=== PATIENT | male | born 1960 | race Caucasian/White ===

== ENCOUNTER 2020-12-31 17:52 | Emergency (ER) | payer OTHER ==
[~2020-12-31] VITALS: Ht 182.9 cm; Wt 99.8 kg
[2020-12-31 18:21] LABS: BASOPHILS 0.8 % (0.0-2.0); EOSINOPHILS 1.7 % (0.0-3.0); HEMATOCRIT 43.5 % (42.0-52.0); HEMOGLOBIN 14.6 gm/dL (14.0-18.0); LYMPHOCYTES 30.2 % (24.0-44.0); MCH 32.3 pg (26.0-34.0); MCHC 33.7 g/dL (28.0-37.0); MCV 95.8 fL (80.0-100.0); MONOCYTES 8.8 % (1.0-8.0); PLATELET COUNT 256 thou/uL (150-400); POLYS 58.5 % (36.0-66.0); RBC 4.54 mil/uL (4.50-6.00); RDW 14.2 % (10.5-14.5); WBC 13.6 thou/uL (4.0-11.0)
[2020-12-31 18:29] LABS: CALCIUM 9.1 mg/dL (8.5-10.1); CREATININE 0.9 mg/dL (0.7-1.3); POTASSIUM 4.3 mmol/L (3.5-5.1)
[2020-12-31 18:43] LABS: ALBUMIN 3.9 g/dL (3.4-5.0); TOTAL BILIRUBIN 0.4 mg/dL (0.2-1.0); TOTAL PROTEIN 7.3 g/dL (6.4-8.2)
[2020-12-31 19:32] LABS: APTT 26.8 Seconds (24.5-32.8); INR 0.94; PROTIME 10.3 Seconds (10.5-12.1)
[2020-12-31] MEDS ORDERED: CIPROFLOXACIN500 M1 PO (19:52)
[2020-12-31] MEDS ORDERED: FLAGYL500 M1 PO (19:52)
[2020-12-31 20:07] VITALS: BP 143/69
== END 2020-12-31 20:08 | disposition home or self-care (01) ==
LOC: ER 17:52
PROVIDERS: Emergency Medicine
DX: K62.5 Hemorrhage of anus and rectum (principal); R42 Dizziness and giddiness; F17.210 Nicotine dependence, cigarettes, uncomplicated; Z90.89 Acquired absence of other organs